=== PATIENT | female | born 1940 | race Caucasian/White ===

== ENCOUNTER 2018-06-13 07:28 | Observation (INO) | payer MEDICARE, BC ==
[~2018-06-13] VITALS: Ht 160 cm; Wt 82.0 kg
[2018-06-13] MEDS ORDERED: CELE200C PO (07:54)
[2018-06-13] MEDS ORDERED: PANT40TA5 PO (07:54)
[2018-06-13] MEDS ORDERED: SULF1TAB24 PO (07:54)
[2018-06-13] MEDS ORDERED: LACTATED RINGERS 1,000 ML IV SCH (08:19)
[2018-06-13] MEDS ORDERED: FENTANYL PF 250 MCG/5ML ONE (08:50)
[2018-06-13] MEDS ORDERED: ACET-76 PO (08:54)
[2018-06-13 08:56] VITALS: BP 122/75
[2018-06-13] MEDS ORDERED: NEOSTIGMINE 1 MG/ML, 10ML ONE (09:12)
[2018-06-13] MEDS ORDERED: PROPOFOL 10 MG/ML, 20ML ONE (09:12)
[2018-06-13] MEDS ORDERED: GLYCOPYRROLATE 0.2MG/1ML, 5ML ONE (09:12)
[2018-06-13] MEDS ORDERED: CEFAZOLIN 1,000 MG ONE (09:12)
[2018-06-13] MEDS ORDERED: ONDANSETRON 2MG/ML, 2ML ONE (09:13)
[2018-06-13] MEDS ORDERED: ROCURONIUM 10MG/ML,5ML ONE (09:13)
[2018-06-13] MEDS ORDERED: ACETAMINOPHEN 325 MG TABLET PO PRN (09:30)
[2018-06-13] MEDS ORDERED: PROMETHAZINE 12.5 MG SUPP PR PRN (09:30)
[2018-06-13] MEDS ORDERED: MEPERIDINE/PF 25MG/0.5ML IVPush PRN (09:30)
[2018-06-13] MEDS ORDERED: HALOPERIDOL 5 MG/ML IV PRN (09:30)
[2018-06-13] MEDS ORDERED: MORPHINE SULFATE 4 MG/ML, 1ML IVPush PRN (09:30)
[2018-06-13] MEDS ORDERED: PROMETHAZINE 25 MG/ML, 1ML IM PRN ×2 (09:30)
[2018-06-13] MEDS ORDERED: FENTANYL PF 100 MCG/2ML IV PRN (09:30)
[2018-06-13] MEDS ORDERED: OXYcodone 5 MG/5 ML ORAL.SOL UDC PO PRN (09:30)
[2018-06-13] MEDS ORDERED: LABETALOL 5MG/ML, 20ML IV PRN (09:30)
[2018-06-13] MEDS ORDERED: ONDANSETRON ODT 8 MG PO PRN (09:30)
[2018-06-13] MEDS ORDERED: HYDROmorphone 2 MG/ML, 1ML IVPush PRN (09:30)
[2018-06-13] MEDS ORDERED: PROMETHAZINE 25 MG/ML, 1ML IV PRN (09:30)
[2018-06-13] MEDS ORDERED: ONDANSETRON 2MG/ML, 2ML IV PRN (09:30)
[2018-06-13] MEDS ORDERED: hydrALAzine 20 MG/ML, 1ML IV PRN (09:30)
[2018-06-13] MEDS ORDERED: PROMETHAZINE 25 MG SUPP PR PRN (09:30)
[2018-06-13] MEDS ORDERED: PHENYLEPHRINE 10 MG/ML ONE (09:34)
[2018-06-13] MEDS ORDERED: DEXAMETHASONE 4 MG/ML, 1ML ONE (09:34)
[2018-06-13] MEDS ORDERED: VASOPRESSIN 20 UNIT/ML, 1ML ONE (10:14)
[2018-06-13] MEDS ORDERED: NITROGLYCERIN SINGLE TAB 0.4 MG SL ONE (12:26)
[2018-06-13] MEDS ORDERED: MORPHINE SULFATE 4 MG/ML, 1ML IVPush ONE (12:30)
[2018-06-13] MEDS ORDERED: ALUMINUM/MAG/SIMETHICONE 30 ML UDC PO ONE (13:00)
[2018-06-13 13:27] LABS: TROPONIN I < 0.015 ng/mL (0.000-0.045)
[2018-06-13 14:00] VITALS: BP 114/55
[2018-06-13] MEDS ORDERED: ACETAMINOPHEN 500 MG TABLET PO PRN (15:00)
[2018-06-13] MEDS ORDERED: MAALOX/HYOSCYAMINE/LIDOCAINE 45 ML BTL PO PRN (15:00)
[2018-06-13] MEDS ORDERED: ASPIRIN 325 MG TABLET EC PO ONE (15:00)
[2018-06-13] MEDS: HEPARIN 5,000 UNITS/ML, 1ML SQ SCH (17:04)
[2018-06-13 20:00] VITALS: BP 105/65
[2018-06-13] MEDS ORDERED: SODIUM CHLORIDE FLUSH 10ML SYR IVF SCH ×2 (21:00)
[2018-06-13 23:08] LABS: TROPONIN I < 0.015 ng/mL (0.000-0.045)
[2018-06-14] MEDS: HEPARIN 5,000 UNITS/ML, 1ML SQ SCH (01:31)
[2018-06-14 02:00] VITALS: BP 102/64
[2018-06-14] MEDS ORDERED: ASPIRIN 325 MG TABLET EC PO SCH (06:00)
[2018-06-14 08:40] VITALS: BP 108/72
[2018-06-14] MEDS ORDERED: PANT40GR PO (09:20)
[2018-06-14] MEDS ORDERED: ONDA4TAB7 PO (10:35)
[2018-06-14] MEDS ORDERED: HYDR-3240 PO (10:36)
== END 2018-06-14 10:50 | disposition home or self-care (01) ==
LOC: OUT 07:28 → 5SO 14:39 → OUT 17:19 → 5SO 17:19 → DCLOUNGE 06-14 10:33
PROVIDERS: ADMIT Urology; ATTEND Urology
DX: N20.2 Calculus of kidney with calculus of ureter (principal); M19.90 Unspecified osteoarthritis, unspecified site; K21.9 Gastro-esophageal reflux disease without esophagitis; R07.89 Other chest pain; Z88.8 Allergy status to other drugs, medicaments and biological substances; Z79.82 Long term (current) use of aspirin; Z90.710 Acquired absence of both cervix and uterus; Z91.19 Patient's noncompliance with other medical treatment and regimen; Z96.651 Presence of right artificial knee joint
CPT/HCPCS: 36415; 50590; 80048; 80061; 84484; 85025; 93005; 93306; 96372; G0378; J0690; J1100; J1644; J2370; J2405; J2704; J2710; J3010; J3490; J7120